=== PATIENT | female | born 1970 | race Two or more races ===

== ENCOUNTER 2017-10-08 09:34 | Emergency (ER) | payer OTHER ==
[2017-10-08 09:39] VITALS: BP 154/110
--- NOTE | 2017-10-08 09:47 | ER Document Report ---
HPI - HPI Pain Level: Denies Notes: Patient is a 47-year-old female no significant past medical history presents to the ED complaining of a pill that she swallowed feeling stuck in the back of her throat which she was able to push down just prior to her coming back to an exam room. Patient states that she was taking an Excedrin pill for a headache which has since resolved as well. Patient states that she does not like to swallow tablets in the first place and he gives her a lot of anxiety. Patient states that the sensation of foreign body in the throat is completely gone and she would like to get back to work. Denies any drug allergies. Denies any headache, fever, neck pain, URI, sore throat, chest pain, palpitations, syncope , cough, shortness of breath, wheeze, dyspnea, abdominal pain, nausea/vomiting/ diarrhea, urinary retention, dysuria, hematuria, or rash. - ROS Systems Reviewed and Negative: Yes All other systems reviewed and negative Past Medical History - Social History Smoking Status: Never Smoker Family History: Reviewed & Not Pertinent Vertical Provider Document - CONSTITUTIONAL Agree With Documented VS: Yes Notes: PHYSICAL EXAMINATION: GENERAL: Well-appearing, well-nourished and in no acute distress. HEAD: Atraumatic, normocephalic. EYES: Pupils equal round and reactive to light, extraocular movements intact, sclera anicteric, conjunctiva are normal. ENT: EAC clear b/l. TM's intact b/l without erythema, fluid, or perforation. Nares patent and without discharge. oropharynx clear without exudates. No tonsilar hypertrophy or erythema. Moist mucous membranes. No sinus tenderness. No airway compromise. No angioedema. No obvious foreign body or enlarged epiglottis. Uvula midline. No palatine shift. NECK: Normal range of motion, supple without lymphadenopathy LUNGS: Breath sounds clear to auscultation bilaterally and equal. No wheezes rales or rhonchi. HEART: Regular rate and rhythm without murmurs, rubs, gallops. ABDOMEN: Soft, nontender, nondistended abdomen. No guarding, no rebound. No masses appreciated. Normal bowel sounds present. No CVA tenderness bilaterally. PSYCH: Normal mood, normal affect. - INFECTION CONTROL TRAVEL OUTSIDE OF THE [place] IN LAST 30 DAYS: No Course - Re-evaluation Re-evalutation: 10/08/17 09:54 Patient is an afebrile, well-hydrated, 47-year-old female who presents to the ED for a worried well visit for sensation of foreign body in her throat which has since resolved. Vitals are acceptable. PE is otherwise unremarkable. No labs or imaging warranted at this time based on H&P. Patient is asymptomatic at this time as well. Low suspicion for any acute systemic emergent condition at this time. Patient to monitor symptoms closely and seek medical attention with any acute changes. Recheck with your PCM in 3-5 days. Consider consult with GI. Return to the ED with any worsening/concerning symptoms otherwise as reviewed discharge. Patient is in agreement. - Vital Signs Vital signs: Temp Pulse Resp BP Pulse Ox 116 H 20 154/110 H 98 10/08/17 09:38 10/08/17 09:38 10/08/17 09:38 10/08/17 09:38 Discharge - Discharge Clinical Impression: Worried well Condition: Stable Disposition: HOME, SELF-CARE Additional Instructions: Maintain adequate fluid and food intake Zofran as needed tylenol if needed Monitor for any worsening symptoms Make sure you are staying hydrated enough to urinate and have normal BM's Recheck with your PCM in 3-5 days Consider consult with Gastroenterology for ongoing/worsening symptoms Return to the ED with any worsening symptoms and/or development of fever, headache, chest pain, palpitations, syncope, shortness of breath, trouble breathing, abdominal pain, n/v/d, blood in stool/urine, weakness, or other worsening symptoms that are concerning to you. Forms: Elevated Blood Pressure Referrals: BHUPINDER KENNEY MD [ACTIVE STAFF] - Follow up as needed VINCE GRAY MD [ACTIVE STAFF] - Follow up as needed
== END 2017-10-08 09:53 | disposition home or self-care (01) ==
LOC: ER 09:34
DX: Z71.1 Person with feared health complaint in whom no diagnosis is made (principal); R09.89 Other specified symptoms and signs involving the circulatory and respiratory systems
CPT/HCPCS: 99283